=== PATIENT | male | born 1985 | race Two or more races ===

== ENCOUNTER → 2022-01-06 12:19 | Outpatient (CLI) | payer OTHER ==
[~2022-01-06 12:19] MED LIST: IBUPROFEN800 MG PO; ORPH100T PO; PROTONIX40 MG PO
== END | disposition home or self-care (01) ==
LOC: LAB 12:19
PROVIDERS: ATTEND Obstetrics & Gynecology
DX: Z20.828 Contact with and (suspected) exposure to other viral communicable diseases (principal); Z20.818 Contact with and (suspected) exposure to other bacterial communicable diseases

== ENCOUNTER 2022-06-11 13:17 | Emergency (ER) | payer OTHER ==
[~2022-06-11] VITALS: Ht 162.6 cm; Wt 61.2 kg
[2022-06-11] MEDS ORDERED: PEPCID AC20 MG PO (18:46)
[2022-06-11] MEDS ORDERED: ZOFRAN8 MG PO (18:46)
== END 2022-06-11 18:56 | disposition home or self-care (01) ==
LOC: ER 13:17
DX: E86.0 Dehydration (principal); K52.9 Noninfective gastroenteritis and colitis, unspecified